=== PATIENT | male | born 1980 | race Caucasian/White ===

== ENCOUNTER 2024-12-22 14:13 | Emergency (ER) | payer OTHER ==
[~2024-12-22] VITALS: Ht 172.7 cm; Wt 100.0 kg
[2024-12-22 14:40] VITALS: TEMP 98
[2024-12-22] MEDS ORDERED: TRIA16.911 NASAL (14:45)
[2024-12-22] MEDS ORDERED: BUPR1TAB46 SL (14:45)
[2024-12-22 16:04] VITALS: BP 133/89; PULSE 66; RESP 16; O2SAT 98
== END 2024-12-22 18:04 ==
LOC: EMS 14:13
DX: Z03.821 Encounter for observation for suspected ingested foreign body ruled out (principal); I10 Essential (primary) hypertension; Z79.891 Long term (current) use of opiate analgesic
CPT/HCPCS: 74176; 99284; Z7502